=== PATIENT | male | born 1940 | race Hispanic/Latino ===

== ENCOUNTER → 2016-11-17 | Outpatient (CLI) | payer MEDICARE | END | disposition home or self-care (01) | LOC: GMAL 12:18 | PROVIDERS: ATTEND Family Medicine | DX: D51.3 Other dietary vitamin B12 deficiency anemia (principal); E55.9 Vitamin D deficiency, unspecified ==

== ENCOUNTER → 2017-05-26 | Outpatient (CLI) | payer OTHER | END | disposition home or self-care (01) | LOC: GMAL 10:24 | PROVIDERS: ATTEND Family Medicine | DX: D51.3 Other dietary vitamin B12 deficiency anemia (principal); Z12.5 Encounter for screening for malignant neoplasm of prostate; E55.9 Vitamin D deficiency, unspecified | CPT/HCPCS: 82306; 82607; G0103 ==

== ENCOUNTER 2017-09-14 05:46 | Day surgery (SDC) | payer OTHER ==
[2017-09-14] MEDS ORDERED: LACTATED RINGERS 0 ML ONE (06:08)
[2017-09-14] MEDS ORDERED: LACTATED RINGERS 1,000 ML ONE (07:43)
--- NOTE | 2017-09-14 09:12 | OP ---
DATE OF PROCEDURE: 09/14/17 PREOPERATIVE DIAGNOSIS: 1. Personal history of tubular adenoma. 2. Anticoagulation use. POSTOPERATIVE DIAGNOSIS: 1. Three polypectomies, one in the ileocecal valve, descending and sigmoid colon, resected and retrieved using a hot snare. 2. Diverticulosis. 3. Hypertrophic anal papilla. PROCEDURE: 1. Colonoscopy. SURGEON: Gage Orosco MD. ANESTHESIA: MAC. COMPLICATIONS: None. ESTIMATED BLOOD LOSS: Less than 1 mL. PROCEDURE: Informed consent was obtained prior to sedation. The preprocedure cardiopulmonary assessment was satisfactory. The patient was placed in the left lateral decubitus position and was sedated. The tip of the Olympus colonoscope was inserted in the rectum and guided through the entire colon under direct visualization. The ileocecal valve and appendiceal orifice appeared unremarkable. The colonoscopy prep was suboptimal. There was a 4-mm polyp in the ileocecal valve that was resected and retrieved using a hot snare. There was evidence of diverticulosis scattered through the colon, especially in the sigmoid colon. In the descending colon, there was a 4-mm polyp that was resected and retrieved. In the sigmoid colon, there was a polyp that was resected and retrieved. All of the polyps were resected and retrieved using a hot snare. Continuation of withdrawal showed diverticulosis in the sigmoid. Retroflexion view of the anorectal area showed small internal hemorrhoids. The scope was then withdrawn from the patient and the procedure was terminated. RECOMMENDATION: 1. Followup pathology. 2. Watch for complications like bleeding, infection, abdominal pain or other and go to the Emergency Room immediately. 3. Resume Plavix in 2 days. 4. Continue home medications. 5. Followup in my office in 4 weeks. #[id number] [facility]
[2017-09-14] MEDS ORDERED: PHENYLEPHRINE INJ 1ML 10 MG/ML VIAL IV ONE (10:00)
[2017-09-14] MEDS ORDERED: PROPOFOL 200 MG/20 ML VIAL IV ONE (10:00)
[2017-09-14 14:27] VITALS: TEMP 96.1
[2017-09-14 14:28] VITALS: BP 154/76; O2SAT 96
== END 2017-09-14 10:05 | disposition home or self-care (01) ==
LOC: AMB 05:46
DX: Z12.11 Encounter for screening for malignant neoplasm of colon (principal); D12.4 Benign neoplasm of descending colon; D12.5 Benign neoplasm of sigmoid colon; K57.30 Diverticulosis of large intestine without perforation or abscess without bleeding; K62.89 Other specified diseases of anus and rectum; K64.8 Other hemorrhoids; I25.111 Atherosclerotic heart disease of native coronary artery with angina pectoris with documented spasm; K21.9 Gastro-esophageal reflux disease without esophagitis; E66.9 Obesity, unspecified; Z68.31 Body mass index [BMI] 31.0-31.9, adult; Z86.010 Personal history of colon polyps; Z79.01 Long term (current) use of anticoagulants; Z95.1 Presence of aortocoronary bypass graft; Z87.891 Personal history of nicotine dependence; Z79.02 Long term (current) use of antithrombotics/antiplatelets; Z79.899 Other long term (current) drug therapy
CPT/HCPCS: 00812; 45385; 88305; J3490; J7120

== ENCOUNTER → 2018-06-07 | Outpatient (CLI) | payer OTHER | LOC: GMAL 11:02 | PROVIDERS: ATTEND Family Medicine | DX: D51.3 Other dietary vitamin B12 deficiency anemia (principal); R53.83 Other fatigue; E55.9 Vitamin D deficiency, unspecified; Z12.5 Encounter for screening for malignant neoplasm of prostate | CPT/HCPCS: 82306; 82607; 84443; G0103 ==

== ENCOUNTER → 2018-06-09 | Outpatient (CLI) | payer OTHER ==
--- NOTE | 2018-06-09 08:51 | US ---
EXAM DESCRIPTION: Bladder CLINICAL HISTORY: 78 years Male, URGE INCONTINENCE COMPARISON: None. FINDINGS: The bladder appears thick-walled. No focal bladder mass. There is moderate invagination of the bladder base suggesting prostatic enlargement. Initial bladder volume is 104.2 mL. After voiding, a moderate residuum is seen consistent with incomplete emptying. The post void volume is 13 mL. IMPRESSION: Thick-walled bladder with invagination of the bladder base consistent with prostatic enlargement. Moderate post void residuum. Electronically signed by: Earl Banda MD 06/09/2018 8:50 AM [facility]
== END ==
LOC: US 08:00
PROVIDERS: ATTEND Family Medicine
DX: N39.41 Urge incontinence (principal)

== ENCOUNTER → 2019-06-08 | Outpatient (CLI) | payer OTHER | LOC: GMAL 10:46 | PROVIDERS: ATTEND Family Medicine | DX: D51.3 Other dietary vitamin B12 deficiency anemia (principal); I10 Essential (primary) hypertension; E78.49 Other hyperlipidemia; R53.83 Other fatigue; E55.9 Vitamin D deficiency, unspecified; Z12.5 Encounter for screening for malignant neoplasm of prostate | CPT/HCPCS: 82306; 82607; 84443; G0103 ==

== ENCOUNTER → 2020-05-28 | Outpatient (CLI) | payer OTHER ==
--- NOTE | 2020-05-29 10:05 | US ---
EXAM DESCRIPTION: Bladder: ULTRASOUND. CLINICAL HISTORY: 80 years Male FREQUENCY OF MICTURITION COMPARISON: None Available. TECHNIQUE: Transcutaneous scanning: Sheth-scale and Doppler modes. FINDINGS: Urinary bladder measures 6.2 x 6.1 x 7.2 cm for an estimated volume of 143.4 mL. Postvoid volume is 16.2 mL. Micturition volume is 127.2 mL. Wall thickening containing fluid in the bladder on the anterior aspect. Measures 2.3 x 1.8 x 1.2 cm. Nonvascular. Unable to detect ureteral jets in the bladder by color Doppler. No fluid in the anterior peritoneal reflection. IMPRESSION: Urinary bladder wall thickening with focal thickening containing fluid measuring 2.3 cm. Unable to detect ureteral jets in the bladder by color Doppler. Micturition volume 127 mL with residual volume less than 20 mL. Electronically signed by: Sav Arroyo MD 05/29/2020 10:03 AM [facility]
== END ==
LOC: US 08:34
PROVIDERS: ATTEND Family Medicine
DX: R35.0 Frequency of micturition (principal); N32.89 Other specified disorders of bladder

== ENCOUNTER → 2020-06-02 | Outpatient (CLI) | payer OTHER | LOC: GMAL 14:31 | PROVIDERS: ATTEND Family Medicine | DX: D51.3 Other dietary vitamin B12 deficiency anemia (principal); E55.9 Vitamin D deficiency, unspecified; I10 Essential (primary) hypertension; E16.2 Hypoglycemia, unspecified; E78.49 Other hyperlipidemia ==

== ENCOUNTER → 2020-06-18 | Outpatient (CLI) | payer OTHER | LOC: RESP 10:01 | PROVIDERS: ATTEND Family Medicine | DX: Z82.49 Family history of ischemic heart disease and other diseases of the circulatory system (principal) ==